=== PATIENT | male | born 1970 | race Caucasian/White ===

== ENCOUNTER 2024-07-26 16:11 | Inpatient (IN) | payer MEDICAID ==
[~2024-07-26] VITALS: Ht 170.2 cm; Wt 69.9 kg
[2024-07-26 16:20] VITALS: O2SAT 100
[2024-07-26 17:39] LABS: BASOPHILS % 0.3 % (0.0-2.0); EOSINOPHILS % 1.6 % (0.0-5.0); HEMATOCRIT. 52.2 % (42.0-52.0); LYMPHOCYTES % 22.8 % (20.0-50.0); MEAN CORPUSCULAR HEMOGLOBIN 28.7 pg (28.0-32.0); MEAN CORPUSCULAR HGB CONC 32.5 g/dL (31.0-37.0); MEAN CORPUSCULAR VOLUME 88.3 fL (80.0-94.0); MONOCYTES % 8.4 % (2.0-8.0); NEUTROPHILS % 66.9 % (40.0-76.0); PLATELET 252 x1000/uL (130-400); RED BLOOD CELL COUNT 5.91 mill/uL (4.7-6.1); RED CELL DISTRIBUTION WIDTH 15.1 % (11.6-14.6)
[2024-07-26 17:43] LABS: CHLORIDE 106 mEq/L (98-107); POTASSIUM 3.9 mEq/L (3.5-5.1); SODIUM 139 mEq/L (136-145)
[2024-07-26 17:44] LABS: CARBON DIOXIDE 24 mEq/L (21-32); INR 1.2; PROTHROMBIN TIME 12.3 sec (9.6-11.0)
[2024-07-26 17:45] LABS: DIFFERENTIAL COMMENT 1
[2024-07-26 17:49] LABS: CREATININE 0.9 mg/dL (0.6-1.3); GLUCOSE 84 mg/dL (70-105)
[2024-07-26 17:50] LABS: TROPONIN I HIGH SENSITIVITY 15 ng/L (3.0-53); UREA NITROGEN BLOOD 12 mg/dL (9-23)
[2024-07-26 17:56] LABS: ETHANOL BLOOD < 10 mg/dL (<10)
[2024-07-26 20:20] LABS: CLARITY URINE CLEAR (CLEAR); COLOR URINE YELLOW (YELLOW); GLUCOSE URINE NEGATIVE (NEGATIVE); KETONES URINE NEGATIVE (NEGATIVE); LEUKOCYTE ESTERASE URINE NEGATIVE (NEGATIVE); NITRITE URINE NEGATIVE (NEGATIVE); OCCULT BLOOD URINE NEGATIVE (NEGATIVE); PROTEIN URINE NEGATIVE (NEGATIVE); SPECIFIC GRAVITY URINE 1.065 (1.005-1.030)
[2024-07-26 20:33] LABS: *AMPHETAMINES SCREEN URINE PRESUMPTIVE POSITIVE (NEGATIVE); *BARBITURATES SCREEN URINE NEGATIVE (NEGATIVE); *BENZODIAZEPINES SCREEN URINE NEGATIVE (NEGATIVE); *COCAINE SCREEN URINE NEGATIVE (NEGATIVE)
[2024-07-26 20:34] LABS: CANNABINOID URINE SCREEN PRESUMPTIVE POSITIVE (NEGATIVE); ECSTASY MDMA SCREEN URINE CONF.TEST INDICATED (NEGATIVE); METHADONE URINE SCREEN NEGATIVE (NEGATIVE); OPIATES URINE SCREEN NEGATIVE (NEGATIVE); PHENCYCLIDINE URINE SCREEN NEGATIVE (NEGATIVE)
[2024-07-26] MEDS ORDERED: IPRATROPIUM/ALBUTEROL 0.5-3(2.5)MG/3ML NEB HHN PRN (21:15)
[2024-07-26] MEDS ORDERED: LORAZEPAM 2MG/ML INJ IV PRN (21:15)
[2024-07-26] MEDS ORDERED: HYDRALAZINE 20MG/ML VIAL IV PRN (21:30)
[2024-07-26 22:00] VITALS: BP 136/96; PULSE 78; RESP 19; TEMP 36.5
[2024-07-27] VITALS: BP 144/100; PULSE 87; RESP 20; TEMP 36.2; O2SAT 100
[2024-07-27] MEDS ORDERED: DEXTROSE 50% WATER 50ML SYRINGE IV PRN (00:45)
[2024-07-27 04:00] VITALS: BP 137/100; PULSE 81; RESP 20; TEMP 36.2
[2024-07-27 05:51] LABS: CARBON DIOXIDE 27 mEq/L (21-32); CHLORIDE 107 mEq/L (98-107); POTASSIUM 4.2 mEq/L (3.5-5.1); SODIUM 141 mEq/L (136-145)
[2024-07-27 05:52] LABS: CALCIUM 8.8 mg/dL (8.7-10.4)
[2024-07-27 05:57] LABS: GLUCOSE 97 mg/dL (70-105); TRIGLYCERIDE 93 mg/dL (0-150); UREA NITROGEN BLOOD 17 mg/dL (9-23)
[2024-07-27 05:58] LABS: LDL CHOLESTEROL 98 mg/dL (5-100)
[2024-07-27 05:59] LABS: CHOLESTEROL 138 mg/dL (<200); HDL CHOLESTEROL 25 mg/dL (>55)
[2024-07-27 06:04] LABS: T4 FREE 1.24 ng/dL (0.89-1.76); THYROID STIMULATING HORMONE 0.78 uIU/mL (0.55-4.78)
[2024-07-27 06:22] LABS: HEMATOCRIT. 48.6 % (42.0-52.0); HEMOGLOBIN. 16.3 g/dL (14.0-18.0); LYMPHOCYTES % 24.9 % (20.0-50.0); MEAN CORPUSCULAR HEMOGLOBIN 30.1 pg (28.0-32.0); MEAN CORPUSCULAR HGB CONC 33.6 g/dL (31.0-37.0); MEAN CORPUSCULAR VOLUME 89.6 fL (80.0-94.0); MONOCYTES % 10.3 % (2.0-8.0); NEUTROPHILS % 60.8 % (40.0-76.0); PLATELET 282 x1000/uL (130-400); RED BLOOD CELL COUNT 5.42 mill/uL (4.7-6.1); RED CELL DISTRIBUTION WIDTH 14.9 % (11.6-14.6)
[2024-07-27] MEDS: BLOOD SUGAR DIAGNOSTIC STRIP TEST SCH (07:10)
[2024-07-27 08:00] VITALS: BP 130/92; PULSE 70; TEMP 36.1
[2024-07-27] MEDS: THIAMINE HCL 100MG TABLET PO SCH (08:37)
[2024-07-27] MEDS: CLOPIDOGREL 75MG TABLET PO SCH (08:37)
[2024-07-27] MEDS: ASPIRIN 81MG TABLET PO SCH (08:37)
[2024-07-27 13:00] VITALS: BP 136/99; PULSE 77; RESP 16; TEMP 36.5; O2SAT 97
[2024-07-27 16:56] VITALS: BP 140/96; PULSE 87; RESP 18; TEMP 36.5; O2SAT 97
[2024-07-27 20:00] VITALS: BP 141/99; PULSE 84; RESP 18; TEMP 37; O2SAT 99
[2024-07-27] MEDS: ATORVASTATIN CALCIUM 40MG TABLET PO SCH (20:42)
[2024-07-28] VITALS: BP 145/102; PULSE 79; RESP 18; TEMP 36.9; O2SAT 97
[2024-07-28 04:00] VITALS: BP 121/82; PULSE 85; RESP 19; TEMP 36.4; O2SAT 99
[2024-07-28 08:00] VITALS: BP 134/89; PULSE 82; RESP 18; TEMP 36.6; O2SAT 100
[2024-07-28 12:00] VITALS: BP_DIAS 135; PULSE 90; RESP 17; TEMP 36.9; O2SAT 99
[2024-07-28 15:54] VITALS: BP 162/95; RESP 18; TEMP 36.9; O2SAT 100
== END 2024-07-28 17:00 | disposition left against medical advice (07) | DRG 45 ==
LOC: ER 16:11 → EDBEDREQSVC 20:24 → EDBEDREQ 20:24 → EDBEDREQTM 20:24 → 8WST 22:11
PROVIDERS: ADMIT Internal Medicine; ATTEND Internal Medicine
DX: I63.9 Cerebral infarction, unspecified (principal); G81.91 Hemiplegia, unspecified affecting right dominant side; F12.10 Cannabis abuse, uncomplicated; F15.10 Other stimulant abuse, uncomplicated; F17.200 Nicotine dependence, unspecified, uncomplicated; Z53.29 Procedure and treatment not carried out because of patient's decision for other reasons; R29.701 NIHSS score 1; I10 Essential (primary) hypertension; Z86.73 Personal history of transient ischemic attack (TIA), and cerebral infarction without residual deficits; Z82.3 Family history of stroke; Z59.00 Homelessness unspecified
CPT/HCPCS: 36415; 70496; 70498; 70551; 71275; 80048; 80061; 80305; 80320; 81003; 82962; 83036; 84439; 84443; 84484; 85025; 86850; 86870; 86900; 93005; 99285; G0480